=== PATIENT | male | born 2000 | race Caucasian/White ===

== ENCOUNTER 2023-08-07 07:29 | Day surgery (SDC) | payer BC ==
[2023-08-02 14:28] VITALS: BMI 26.6
[2023-08-07] MEDS ORDERED: Oxymetazoline HCl 0.05% (30 ML BOT) ONE ×2 (08:10→09:57)
[2023-08-07] MEDS ORDERED: Lidocaine 1% (PF) 30 ML VIAL ONE (09:57)
[2023-08-07] MEDS ORDERED: EPINEPHrine 1 MG/ML AMP ONE (09:57)
[2023-08-07] MEDS ORDERED: Bacitracin Zinc Ointment 30 gm TUBE ONE (09:57)
[2023-08-07] MEDS ORDERED: Midazolam HCl 2 mg/2 ml Vial ONE (10:02)
[2023-08-07] MEDS ORDERED: Fentanyl 250 MCG/5 ML VIAL ONE (10:02)
[2023-08-07] MEDS ORDERED: SUGAMMADEX SODIUM 200 MG/2 ML VIAL ONE (10:03)
[2023-08-07] MEDS ORDERED: Lidocaine 1% PF 5 ML VIAL ONE (10:12)
[2023-08-07] MEDS ORDERED: Ondansetron PF 4 MG/2 ML Vial ONE (10:12)
[2023-08-07] MEDS ORDERED: Rocuronium Bromide 10 MG/ML (10ML VIAL) ONE (10:12)
[2023-08-07] MEDS ORDERED: PROPOFOL 200 MG/20 ML VIAL ONE (10:12)
[2023-08-07] MEDS ORDERED: Dexamethasone 20 MG/5 ML VIAL ONE (10:12)
[2023-08-07] MEDS ORDERED: methylPREDNISolone Acetate 40 mg/ml Vial ONE (10:53)
[2023-08-07] MEDS ORDERED: hydrALAZINE 20 MG/ML VIAL ONE (11:22)
[2023-08-07] MEDS ORDERED: fentaNYL 50 mcg/mL 1 mL Vial ONE ×2 (11:42→11:52)
[2023-08-07] MEDS ORDERED: Labetalol HCl 100 MG/20 ML VIAL ONE (12:07)
[2023-08-07] MEDS ORDERED: HYDROcodone/Acetaminophen 5/325 mg Tablet ONE (13:08)
== END 2023-08-07 13:27 | disposition home or self-care (01) ==
LOC: SDC 07:29
PROVIDERS: ATTEND Otolaryngology Plastic Surgery within the Head & Neck
PROC: 099R8ZZ Drainage of Left Maxillary Sinus, Via Natural or Artificial Opening Endoscopic (ICD-10-PCS; principal; 2023-08-07)
PROC: 09BM8ZZ Excision of Nasal Septum, Via Natural or Artificial Opening Endoscopic (ICD-10-PCS; principal; 2023-08-07)
PROC: 09BL8ZZ Excision of Nasal Turbinate, Via Natural or Artificial Opening Endoscopic (ICD-10-PCS; principal; 2023-08-07)
PROC: 09BU8ZZ Excision of Right Ethmoid Sinus, Via Natural or Artificial Opening Endoscopic (ICD-10-PCS; principal; 2023-08-07)
PROC: 09BV8ZZ Excision of Left Ethmoid Sinus, Via Natural or Artificial Opening Endoscopic (ICD-10-PCS; principal; 2023-08-07)
PROC: 099Q8ZZ Drainage of Right Maxillary Sinus, Via Natural or Artificial Opening Endoscopic (ICD-10-PCS; principal; 2023-08-07)
PROC: 09BT8ZZ Excision of Left Frontal Sinus, Via Natural or Artificial Opening Endoscopic (ICD-10-PCS; principal; 2023-08-07)
PROC: 09BS8ZZ Excision of Right Frontal Sinus, Via Natural or Artificial Opening Endoscopic (ICD-10-PCS; principal; 2023-08-07)
PROC: 09BW8ZZ Excision of Right Sphenoid Sinus, Via Natural or Artificial Opening Endoscopic (ICD-10-PCS; 2023-08-07)
PROC: 09BX8ZZ Excision of Left Sphenoid Sinus, Via Natural or Artificial Opening Endoscopic (ICD-10-PCS; 2023-08-07)
DX: J32.4 Chronic pansinusitis (principal); J34.2 Deviated nasal septum; J34.3 Hypertrophy of nasal turbinates; J33.0 Polyp of nasal cavity
CPT/HCPCS: 88304; J0171; J0360; J1030; J1100; J2001; J2250; J2405; J2704; J3010; J7611